=== PATIENT | female | born 1990 | race Caucasian/White ===

== ENCOUNTER 2017-08-01 09:02 | Emergency (ER) | payer SELFPAY ==
[2017-08-01 09:19] VITALS: BP 118/84; PULSE 113; TEMP 98.4; BMI 31.2
--- NOTE | 2017-08-01 09:53 | PDOC ---
History of Present Illness - General Chief Complaint: Sore Throat Stated Complaint: SORE THROAT Time Seen by Provider: 08/01/17 09:35 History Source: Patient Exam Limitations: No Limitations - History of Present Illness Timing/Duration: getting worse Associated Symptoms: reports: cough, fever/chills, loss of appetite, malaise Past History - Past Medical History Allergies/Adverse Reactions: Allergies Allergy/AdvReac Type Severity Reaction Status Date / Time Penicillins Allergy Verified 08/01/17 09:11 Home Medications: Ambulatory Orders NK [No Known Home Medication] 08/01/17 COPD: No - Immunization History Immunization Up to Date: No - Suicide/Smoking/Psychosocial Hx Smoking History: Never smoked Have you smoked in the past 12 months: No Information on smoking cessation initiated: No Hx Alcohol Use: No Drug/Substance Use Hx: No Substance Use Type: None *Physical Exam - Vital Signs Last Vital Signs Temp Pulse Resp BP Pulse Ox 98.4 F 113 H 18 118/84 100 08/01/17 09:11 08/01/17 09:11 08/01/17 09:11 08/01/17 09:11 08/01/17 09:11 *DC/Admit/Observation/Transfer - Discharge Dispostion Disposition: HOME Condition at time of disposition: Stable Admit: No - Referrals - Patient Instructions - Post Discharge Activity
--- NOTE | 2017-08-01 10:18 | PDOC ---
Attending Attestation - Resident Resident Name: Norberto Winters - ED Attending Attestation I have performed the following: I have examined & evaluated the patient, The case was reviewed & discussed with the resident, I agree w/resident's findings & plan, Exceptions are as noted - HPI HPI: 08/01/17 10:17 Sore Throat past three days.... hurts to swallow and she can barely talk (hot potato speech) - Physicial Exam PE: 08/01/17 10:19 Large Left Sided Peritonsilar Abscess - Medical Decision Making 08/01/17 10:[address] Winters's assessment and plan
[2017-08-01] MEDS ORDERED: CLINDAMYCIN 900 MG PREMIX IVPB 900 MG/50 ML BAG IVPB ONE ×2 (10:19→10:24)
[2017-08-01] MEDS ORDERED: morphine CARPU-JECT 4 MG/1 ML DISP.SYRIN IVPUSH ONE (10:20)
--- NOTE | 2017-08-01 10:22 | PDOC ---
*Physical Exam - Vital Signs Last Vital Signs Temp Pulse Resp BP Pulse Ox 98.4 F 113 H 18 118/84 100 08/01/17 09:11 08/01/17 09:11 08/01/17 09:11 08/01/17 09:11 08/01/17 09:11 ED Treatment Course - ADDITIONAL ORDERS Additional order review: Laboratory Results 08/01/17 09:45 Urine HCG, Qual Negative Medical Decision Making - Medical Decision Making 08/01/17 10:21 The patient was referred from [facility]. *DC/Admit/Observation/Transfer - Discharge Dispostion Disposition: HOME Condition at time of disposition: Stable - Referrals - Patient Instructions - Post Discharge Activity
[2017-08-01] MEDS ORDERED: morphine CARPU-JECT 8 MG/1 ML DISP.SYRIN ONE (10:24)
--- NOTE | 2017-08-01 10:30 | PDOC ---
History of Present Illness - General Chief Complaint: Sore Throat Stated Complaint: SORE THROAT Time Seen by Provider: 08/01/17 09:35 History Source: Patient Exam Limitations: Language Barrier (Hydraulic Billet Maker #[id number]) - History of Present Illness Initial Comments: 08/01/17 10:22 The patient is a 27F with no PMH who presents to the ED with 3 days of throat pain. The patient states that the pain has progressed and has worsened until her presentation. She is complaining of chills but no other complaints besides the throat pain. She denies any inability to swallow saliva but admits to having increased hoarseness in her voice. Hydraulic Billet Maker was used for the history and physical. Past History - Past Medical History Allergies/Adverse Reactions: Allergies Allergy/AdvReac Type Severity Reaction Status Date / Time Penicillins Allergy Verified 08/01/17 09:11 Home Medications: Ambulatory Orders Clindamycin [Cleocin -] 300 mg PO TID #21 capsule 08/01/17 Ondansetron [Zofran *Odt*] 8 mg SL TID #30 od.tablet 08/01/17 Oxycodone HCl/Acetaminophen [Percocet 5-325 mg Tablet] 1 - 2 tab PO Q4H #20 tablet MDD 6 08/01/17 COPD: No - Immunization History Immunization Up to Date: No - Suicide/Smoking/Psychosocial Hx Smoking History: Never smoked Have you smoked in the past 12 months: No Information on smoking cessation initiated: No Hx Alcohol Use: No Drug/Substance Use Hx: No Substance Use Type: None Review of Systems - Review of Systems Able to Perform ROS?: Yes Comments:: 08/01/17 12:37 GENERAL/CONSTITUTIONAL: No fever or chills. No weakness. HEAD, EYES, EARS, NOSE AND THROAT: Positive for throat pain and change in voice. No change in vision. No ear pain or discharge. GASTROINTESTINAL: No nausea, vomiting, diarrhea, constipation, or abdominal pain. GENITOURINARY: No dysuria, frequency, hematuria, or change in urination. CARDIOVASCULAR: No chest pain, palpitations, or lightheadedness. RESPIRATORY: No cough, wheezing, shortness of breath, or hemoptysis. MUSCULOSKELETAL: No joint or muscle swelling or pain. No neck or back pain. SKIN: No rash or lesions. NEUROLOGIC: No headache, numbness, tingling, weakness, loss of consciousness, or change in strength/sensation. ENDOCRINE: No increased thirst. No abnormal weight change. HEMATOLOGIC/LYMPHATIC: No anemia, easy bleeding, or history of blood clots. ALLERGIC/IMMUNOLOGIC: No hives or skin allergy. Is the patient limited Yoruba proficient: No *Physical Exam - Vital Signs Last Vital Signs Temp Pulse Resp BP Pulse Ox 98.4 F 113 H 18 118/84 100 08/01/17 09:11 08/01/17 09:11 08/01/17 09:11 08/01/17 09:11 08/01/17 09:11 - Physical Exam Comments: 08/01/17 12:38 GENERAL: Well developed, well nourished. Awake and alert. No acute distress. HEENT: Large, L sided peritosillar abscess, not obstructing her airway but causing muffled voice. Normocephalic, atraumatic. Hearing grossly normal. Moist mucous membranes. PERRLA, EOMI. No conjunctival pallor. Sclera are non-icteric. Oropharynx is clear. NECK: Supple. Full ROM. No JVD. CARDIOVASCULAR: Regular rate and rhythm. No murmurs, rubs, or gallops. Distal pulses are 2+ and symmetric. PULMONARY: No evidence of respiratory distress. Lungs clear to auscultation bilaterally. No wheezing, rales or rhonchi. ABDOMINAL: Soft. Non-tender. Non-distended. No rebound or guarding. No organomegaly. Normoactive bowel sounds. GENITOURINARY: No CVA tenderness bilaterally. MUSCULOSKELETAL: Normal range of motion at all joints. No bony deformities or tenderness. EXTREMITIES: No cyanosis. No clubbing. No edema. No calf tenderness. SKIN: Warm and dry. Normal capillary refill. No rashes. No jaundice. NEUROLOGICAL: Alert, awake, appropriate. Cranial nerves 2-12 intact. Gait is normal without ataxia. PSYCHIATRIC: Cooperative. Good eye contact. Appropriate mood and affect. Heart Score/ECG Review #1 General ECG Interpretation: Sinus Rhythm, Normal Rate, Normal Intervals, No acute ischemic changes Compared to previous ECG there are: Previous ECG unavail 08/01/17 13:29 Rate 119 NSR QTc 455 QRS 70 ED Treatment Course - LABORATORY CBC & Chemistry Diagram: 08/01/17 10:16 08/01/17 10:16 - ADDITIONAL ORDERS Additional order review: Laboratory Results 08/01/17 09:45 Urine HCG, Qual Negative - Medications Given in the ED: ED Medications Discontinued Medications Generic Name Dose Route Start Last Admin Trade Name Kanika PRN Reason Stop Dose Admin Morphine Sulfate 4 mg 08/01/17 10:20 08/01/17 10:21 Morphine Injection - IVPUSH 08/01/17 10:21 4 mg ONCE ONE Administration Medical Decision Making - Medical Decision Making 08/01/17 12:39 The patient is a 27F with no PMH who presents to the ED with throat pain and found to have a large L sided peritosillar abscess. ENT was consulted and drained the CAD DRAFTER at bedside. ABx given (clinda 900 IV). The patient is suctioning the drainage from her abscess. Will d/c home with antibiotics, PO clinda. *DC/Admit/Observation/Transfer Diagnosis at time of Disposition: Peritonsillar abscess - Discharge Dispostion Disposition: HOME Condition at time of disposition: Stable - Prescriptions Prescriptions: Clindamycin [Cleocin -] 300 mg PO TID #21 capsule Ondansetron [Zofran *Odt*] 8 mg SL TID #30 od.tablet Oxycodone HCl/Acetaminophen [Percocet 5-325 mg Tablet] 1 - 2 tab PO Q4H #20 tablet MDD 6 - Referrals - Patient Instructions Printed Discharge Instructions: DI for Peritonsillar Abscess -- Adult Additional Instructions: Please return to the ER if symptoms persist, worsen, or new symptoms arise. Please follow up with your primary care physician in 2-3 days. Please return to the ER if you have any signs or symptoms of chest pain, shortness of breath, uncontrollable fever, chills, nausea, vomiting, numbness, tingling, or weakness in any part of your body, changes in vision, or slurred speech. Please take your medications as prescribed. Por favor regrese a la gurdeep de emergencias si los sntomas persisten, empeoran o surgen nuevos sntomas. Por favor, johnathan un seguimiento con roman mdico de atencin primaria en 2-3 weathers. Por favor regrese a la gurdeep de emergencia si tiene signos o sntomas de dolor en el pecho, dificultad para respirar, fiebre incontrolable, escalofros, n useas, vmitos, entumecimiento, hormigueo o debilidad en cualquier parte de roman cuerpo, cambios en la visin o dificultad para hablar. Por favor tome arnie medicamentos segn lo recetado. Print Language: VIETNAMESE - Post Discharge Activity
[2017-08-01] MEDS ORDERED: DEXAMETHASONE SOD PHOSPHATE 4 MG/1 ML VIAL IVPUSH ONE (10:41)
[2017-08-01] MEDS ORDERED: SODIUM CHLORIDE 0.9% 1000 ML INFUS.BAG IV ONE (10:42)
[2017-08-01] MEDS ORDERED: LIDOCAINE HCL 1%, 10 MG/ML (20ML VIAL) ONE (10:50)
[2017-08-01 10:53] LABS: BASO # 0.1 # (0.1-1); BASO % 0.3 % (0-2.0); EOS # 0.1 # (0-4.5); EOS % 0.6 % (0-4.5); LYMPH # 2.7 (8-40); MCH 27.6 pg (25.7-33.7); MCHC 32.7 g/dl (32.0-36.0); MEAN CELL VOLUME 84.2 fl (80-96); MEAN PLT VOLUME 8.6 fl (7.5-11.1); MONO # 1.4 # (3.8-10.2); NEUT # 12.7 # (42.8-82.8); NEUT % 75.1 % (42.8-82.8); PLATELET COUNT 281 K/MM3 (134-434); RDW 13.3 % (11.6-15.6); WHITE BLOOD COUNT 16.9 K/mm3 (4.0-10.0)
[2017-08-01 11:18] LABS: INR 1.12 (0.82-1.09); PROTHROMBIN TIME (PATIENT) 12.7 SEC (9.98-11.88)
[2017-08-01 11:21] LABS: ACTIVATED PTT 31.9 SECONDS (26.9-34.4)
[2017-08-01] MEDS ORDERED: DEXAMETHASONE SOD PHOSPHATE 10 MG/1 ML VIAL ONE (11:22)
[2017-08-01 11:29] LABS: ALBUMIN 3.5 g/dl (3.4-5.0); ANION GAP 12 (8-16); BILIRUBIN,TOTAL 0.8 mg/dL (0.2-1.0); CALCIUM 9.1 mg/dL (8.5-10.1); CO2 23 mmol/L (21-32); CREATININE 0.6 mg/dL (0.55-1.02); GLUCOSE,RANDOM 257 mg/dL (74-106); SGOT/AST 12 U/L (15-37); SGPT/ALT 23 U/L (12-78); TOT PROT 8.5 g/dl (6.4-8.2)
[2017-08-01 11:30] LABS: ALK PHOS 144 U/L (45-117)
[2017-08-01] MEDS ORDERED: LIDOCAINE 1%/EPI 1:100000 (20 ML MULTI DOSE VIAL) ONE (11:58)
--- NOTE | 2017-08-01 12:27 | CON.ENT ---
Consult Consult Specialty:: [facility]ns Reason for Consultation:: ATTENDING PATHOLOGIST - History of Present Illness Chief Complaint: sore throat History of Present Illness: 27F jordanian-speaking woman with no sig PMHx presents with three days of left sore throat. Has not sought medical attention till today presents to ER. In ER noted to have WBC elevation and Left ATTENDING PATHOLOGIST. [facility] consulted to evaluate. She has no prior history of this. She denies SOB. She is hydrating, but hurts to swallow. - History Source History Provided By: Patient Limitations to Obtaining History: No Limitations - Alcohol/Substance Use Hx Alcohol Use: No - Smoking History Smoking history: Never smoked Have you smoked in the past 12 months: No Home Medications - Allergies Allergies/Adverse Reactions: Allergies Allergy/AdvReac Type Severity Reaction Status Date / Time Penicillins Allergy Verified 08/01/17 09:11 - Home Medications Home Medications: Ambulatory Orders Clindamycin [Cleocin -] 300 mg PO TID #21 capsule 08/01/17 Ondansetron [Zofran *Odt*] 8 mg SL TID #30 od.tablet 08/01/17 Oxycodone HCl/Acetaminophen [Percocet 5-325 mg Tablet] 1 - 2 tab PO Q4H #20 tablet MDD 6 08/01/17 Review of Systems - Review of Systems Constitutional: denies: Fever HENT: reports: Throat Pain Physical Exam-ENT Vital Signs: Vital Signs Temperature 98.4 F 08/01/17 09:11 Pulse Rate 113 H 08/01/17 09:11 Respiratory Rate 18 08/01/17 09:11 Blood Pressure 118/84 08/01/17 09:11 O2 Sat by Pulse Oximetry (%) 100 08/01/17 09:11 Constitutional: Yes: Well Nourished, No Distress, Other (laying completely flat in hospital bed. no stridor/stertor. slight hot potatoe voice. no drooling.) Head: Yes: WNL Face: Yes: WNL Eyes: Yes: WNL Nose: Yes: WNL Nasal Passage: Yes: WNL Oral/Pharynx: Yes: Other (left tonsil 3+ with moderate overlying soft palate edema, no pulsations. Right tonsil 1+. Uvula mildly edematous. Mild trismus.) Outer Ear: Yes: WNL Ear Canal: Yes: WNL Tympanic Membrane: Yes: Other (+MS) Neck: Yes: Supple, Other (full ROM) Respiratory: Yes: WNL Neurological: Yes: Other (CN3-7,11,12 intact, symmetrical) Imaging - Results Other: Other (I&D Peritonsillar Abscess (LEFT) - Explained r/b/l/a to patient incl but not limited to pain, bleeding, failure to obtain purulence, recurrent abscess despite drainage, numbness/weakness by nerve damage, need for further medical and/or surgical treatment. All questions answered, she demonstrates her understanding, gives and signs informed consent. Aware no guaranteed outcomes. Consent and exam by me in jordanian. She indicates she understands, declines tool chaser. Procedure: Infiltrated 3cc lido 1%, epi 1:100,000 over left soft palate/superior tonsillar pole. 18 g used to aspirate ~12-1'oclock position with coffee colored turbid purulence aspirated. Further aspirations attempted, and then a 11 scalpel used to incise ~1cm mucosa incorporating the aspiration site. A sterile Gauri was used to spread bluntly to further express purulence along with digital milking. Re-check five minutes later revealed all bleeding stopped. Tolerated very well.) Problem List - Problems (1) Peritonsillar abscess Assessment/Plan: Left Peritonsillar Abscess, drained successfully in ER - Clinda PO for discharge after PO trial - No indication for endoscopy at this time - Hydration, pain control, abx - Patient advised to follow up with PMD in 2 days to ensure improved. Recurrent /residual ATTENDING PATHOLOGIST is unlikely, but if there are any concerns, she is asked to return to my office. Business card given. - She is advised to return to ER if fevers, inability to drink, chest pain, shortness of breath, excess bleeding, worsening pain, altered mental status, or any other concerns. - Culture of purulence taken. Have asked resident to place order. - D/w ER resident. Code(s): J36 - PERITONSILLAR ABSCESS
--- NOTE | 2017-08-02 15:26 | EKG ---
Test Reason : Blood Pressure : / mmHG Vent. Rate : 119 BPM Atrial Rate : 119 BPM P-R Int : 152 ms QRS Dur : 070 ms QT Int : 324 ms P-R-T Axes : 036 034 -03 degrees QTc Int : 455 ms SINUS TACHYCARDIA CANNOT RULE OUT ANTERIOR INFARCT , AGE UNDETERMINED ABNORMAL ECG NO PREVIOUS ECGS AVAILABLE Confirmed by VARINDER HUGGINS MD ([id number]) on 08/02/2017 3:25:57 PM Referred By: Confirmed By:VARINDER HUGGINS MD
--- NOTE | 2017-08-02 16:22 | PDOC ---
Patient Follow-up (Call Back) - Post ED Follow - Up Condition at time of discharge: Stable Disposition at time of original discharge: HOME Reason for Call Back: Abnwl. Microbiology (Preliminary result for wound culture positive for streptococcal Pyro jeans group a patient was discharged on clindamycin 300 mg 3 times a day #21 tabs waiting for final results)
--- NOTE | 2017-08-03 07:38 | PDOC ---
Patient Follow-up (Call Back) - Post ED Follow - Up Condition at time of discharge: Stable Disposition at time of original discharge: HOME Reason for Call Back: Abnwl. Microbiology (Wound cx preliminary shows streptococcus pyogenes group a. On clindamycin. Will await final report.)
--- NOTE | 2017-08-04 10:43 | PDOC ---
Patient Follow-up (Call Back) - Post ED Follow - Up Condition at time of discharge: Stable Disposition at time of original discharge: HOME Reason for Call Back: Abnwl. Microbiology (wound cx sensitive to clinda, which is sensitive on cx)
== END 2017-08-01 13:45 | disposition home or self-care (01) ==
LOC: JER 09:02
PROC: 0C9P0ZZ Drainage of Tonsils, Open Approach (ICD-10-PCS; principal; 2017-08-01)
PROC: 3E03329 Introduction of Other Anti-infective into Peripheral Vein, Percutaneous Approach (ICD-10-PCS; 2017-08-01)
PROC: 3E0333Z Introduction of Anti-inflammatory into Peripheral Vein, Percutaneous Approach (ICD-10-PCS; 2017-08-01)
PROC: 3E033NZ Introduction of Analgesics, Hypnotics, Sedatives into Peripheral Vein, Percutaneous Approach (ICD-10-PCS; 2017-08-01)
DX: J36 Peritonsillar abscess (principal); B95.0 Streptococcus, group A, as the cause of diseases classified elsewhere
CPT/HCPCS: 36415; 80053; 84703; 85025; 85610; 85730; 86850; 86900; 86901; 87040; 87070; 87186; 87205; 93005; 93010; 99281-25